=== PATIENT | female | born 1960 | race Two or more races ===

== ENCOUNTER 2017-11-29 06:33 | Day surgery (SDC) | payer OTHER | END 2017-11-29 10:50 | disposition home or self-care (01) | LOC: AMB-ENDOS 06:33 | DX: Z86.010 Personal history of colon polyps (principal) ==

== ENCOUNTER 2022-04-23 05:39 | Day surgery (SDC) | payer OTHER ==
[~2022-04-23] VITALS: Ht 165.1 cm; Wt 74.4 kg
[~2022-04-23 05:39] MED LIST: CITALOPRAM HBR20 MG PO; CLONAZEPAM0.5 MG PO; COZAAR50 MG PO; FOSAMAX70 MG PO; GABAPENTIN800 M1 PO; LEVO-T125 MCG PO; LIPITOR20 MG PO; RESTORIL7.5 MG PO; VOLTAREN ARTHRI20 GM
== END 2022-04-23 10:25 | disposition home or self-care (01) ==
LOC: CIR.AMB 05:39
PROVIDERS: ATTEND Orthopaedic Surgery
DX: M75.121 Complete rotator cuff tear or rupture of right shoulder, not specified as traumatic (principal); M24.111 Other articular cartilage disorders, right shoulder; Z20.822 Contact with and (suspected) exposure to COVID-19; M75.41 Impingement syndrome of right shoulder; M19.011 Primary osteoarthritis, right shoulder; Z86.16 Personal history of COVID-19; I10 Essential (primary) hypertension; Z95.2 Presence of prosthetic heart valve